=== PATIENT | male | born 1995 | race Native Hawaiian/Other Pacific Islander ===

== ENCOUNTER 2023-07-17 09:09 | Emergency (ER) | payer BC ==
[~2023-07-17] VITALS: Ht 167.6 cm; Wt 113.6 kg
[2023-07-17 09:20] VITALS: TEMP 97.7
[2023-07-17] MEDS ORDERED: Morphine 4 MG/ML VIAL IV PRN (10:45)
[2023-07-17] MEDS ORDERED: NS 1,000 ML IV ONE (10:45)
[2023-07-17] MEDS ORDERED: Ondansetron 4 MG/2 ML VIAL IV ONE (10:45)
[2023-07-17] MEDS ORDERED: Pantoprazole 40 MG in NS 10 ML IV ONE (10:45)
[2023-07-17 10:56] LABS: BASO # 0.1 K/mm3 (0.0-0.2); BASO % 0.8 % (0.0-2.0); EOS % 0.3 % (0.0-4.0); GRAN # 4.4 K/mm3 (1.4-6.5); GRAN % 66.8 % (42.2-75.2); HEMATOCRIT 44.7 % (42.0-52.0); HEMOGLOBIN 14.9 g/dl (13.5-18.0); LYMPH # 1.6 K/mm3 (1.2-3.4); LYMPH % 24.7 % (20.0-51.0); MEAN CELL VOLUME 87 fl (80.0-100.0); MEAN CORPUSCULAR HEMOGLOBIN 29 pg (27-31); MEAN CORPUSCULAR HGB CONC 33 g/dl (33.0-37.0); MEAN PLATELET VOLUME 10.6 fl (7.4-10.4); MONO # 0.5 K/mm3 (0.1-0.6); MONO % 7.1 % (1.7-9.3); PLATELET COUNT 246 K/mm3 (130-400); RED BLOOD COUNT 5.12 M/mm3 (4.20-5.60); REDCELL DISTRIBUTION WIDTH-CV 13.2 % (11.5-14.5)
[2023-07-17 11:19] LABS: ALBUMIN 4.2 g/dL (3.5-5.0); BILIRUBIN,TOTAL 0.4 mg/dL (0.2-1.2); CALCIUM 9.8 mg/dL (8.4-10.2); CREATININE, serum 1.19 mg/dL (0.72-1.25); POTASSIUM 4.3 mEq/L (3.5-4.5); TOTAL PROTEIN 7.3 g/dl (6.2-8.1)
[2023-07-17] MEDS ORDERED: PROTONIX 40MG T40 MG PO (13:08)
[2023-07-17] MEDS ORDERED: ZOFRAN ODT8 MG PO (13:08)
[2023-07-17 13:13] LABS: COLLECTION METHOD CLEAN CATCH
[2023-07-17 13:27] LABS: PH 7.5 (5.0-8.5); URINE APPEARANCE CLEAR (CLEAR/HAZY); URINE BLOOD NEGATIVE (NEGATIVE); URINE COLOR YELLOW (YELLOW); URINE GLUCOSE NEGATIVE (NEGATIVE); URINE KETONE NEGATIVE (NEGATIVE); URINE NITRATE NEGATIVE (NEGATIVE); URINE PROTEIN(semi-quant) NEGATIVE (NEGATIVE); URINE UROBILINOGEN 0.2 E.U/dL (0.2-1.0)
[2023-07-17 14:04] VITALS: BP 124/88; PULSE 83
== END 2023-07-17 14:05 | disposition home or self-care (01) ==
LOC: COL.ER 09:09
PROVIDERS: Nurse Practitioner Family
DX: R10.84 Generalized abdominal pain (principal); K92.0 Hematemesis
CPT/HCPCS: C9113; J2270; J2405; J7030